=== PATIENT | female | born 1995 | race Caucasian/White ===

== ENCOUNTER 2023-05-25 13:16 | Outpatient (AMB) | payer OTHER, SELFPAY ==
--- NOTE | 2023-05-25 13:20 | A.OFFVIS_ITS ---
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 History of SAB with a D&C on 04/13/2023. She reports the bleeding had stopped and she since has had a menstrual cycle. She denies any pelvic pain or other concerns. She is uncertain if she wants a future , but at this point she also is undecided on control. She reports her Pap smear is up-to-date. Last delivery was a home unattended due to the salon receptionist not making it there on time. She is interested in staying within the midwifery model of care. [facility] Surgical History Hx of dilation and curettage Family History Father Asthma Maternal Grandmother Breast cancer Social History Household Members: Spouse and Children Housing: Apartment Alcohol intake: never Patient Tobacco Use Status: Never used Tobacco Current occupational status: unemployed Sexual orientation: Straight/Heterosexual Gender identity: Female Female Reproductive History Menstrual Age of Menarche: 12 Duration of menses: 3-5 days Date of last menstrual period: 05/06/23 Total pregnancies: 4 Full term: 2 Number of Living Children: 2 Ab spontaneous: 2 Review of Systems Const All systems reviewed & are unremarkable except as noted in HPI and below Endo Reports no additional complaints Physical Exam Vital Signs: Last Vital Signs BP 114/68 05/25/23 13:21 BMI result Body Mass Index 20.5 Const General: cooperative, healthy appearing and no acute distress Psych Appearance: well kempt Attitude: cooperative Thought process: Normal thought process present Results AMB Test Urine AMB Test Urine Negative Last Edit by Judith Jacob CMA on 13:42 Results Reviewed Results Reviewed: Laboratory Last Values [facility] Negative 05/25/23 13:41 Assessment & Plan Assessment & Plan (1) History of 2 spontaneous abortions: Code(s): Z87.59 - Personal history of other complications of , childbirth and the puerperium (2) Encounter to establish care: Code(s): Z76.89 - Persons encountering health services in other specified circumstances Plan Discussed: Continue to eat a healthy diet and lifestyle. Start vitamins for the benefit of folic acid. If decided to start control call for a consult follow-up appointment. Monitor menses if any late menses an unprotected intimacy to do a home test and call for care. Discuss options for care within the area to include all other facilities, [facility], [facility], [address] [place] [address]. Follow-up in January for her annual exam. All of her questions and concerns were addressed to the best of my ability and shared decision making. She is agreeable to the plan of care. This note is constructed using voice recognition software. While every effort has been made to ensure accuracy, pharmacy customer care specialist errors may have been included. Orders: Orders AMB HCG Urine Test Today Z32.02 - Encounter for test, result negative Coding Level of Care Code New Pt Level 3 (58171) Diagnoses History of 2 spontaneous abortions Z87.59 Encounter to establish care Z76.89
[2023-05-25 13:21] VITALS: BP 114/68; BMI 20.5
== END 2023-05-25 13:56 | disposition home or self-care (01) ==
LOC: HO.HWS 13:16
PROVIDERS: PCP Internal Medicine; Visit Provider Advanced Practice Midwife
DX: Z87.59 Personal history of other complications of pregnancy, childbirth and the puerperium (principal); Z76.89 Persons encountering health services in other specified circumstances; Z32.02 Encounter for pregnancy test, result negative
CPT/HCPCS: 99203

== ENCOUNTER → 2023-05-25 13:16 | Outpatient (BNVA) | payer OTHER, SELFPAY | PROVIDERS: PCP Internal Medicine; Visit Provider Advanced Practice Midwife | DX: Z76.89 Persons encountering health services in other specified circumstances (principal); Z87.59 Personal history of other complications of pregnancy, childbirth and the puerperium | CPT/HCPCS: 81025; 99202 ==

== ENCOUNTER 2023-07-18 09:08 | Outpatient (AMB) | payer OTHER, SELFPAY ==
[2023-07-18 09:10] VITALS: BP 106/60; BMI 19.8
--- NOTE | 2023-07-18 09:10 | A.OFFVIS_ITS ---
Intake Vital Signs 07/18/23 09:10 Height 5 ft 2 in Weight 108 lb BMI 19.8 BP 106/60 Intake Visit Reasons: pain during intercourse Intake Note: Pain with intercourse and lower back pain when on period Car Jockey Required: No Information Interpreted: non-clinical & clinical Pipe And Tank Fabricator: Pipe And Tank Fabricator Present (Ana) Allergies No Known Allergies [No Known Allergies*] Allergy (Verified 07/18/23 09:14) Medication List - Last Reconciled 07/18/23 by Breana Camarena CNM No Known Home Meds Is last menstrual period known: Yes Last menstrual period: 07/01/23 Post menopausal: No HPI pain during intercourse HPI Details Patient is here for problem visit because she has been having pain with intercourse for the last 2 weeks she says she has not actually having pain with her. Other than regular cramping. She was in [place] for at least a year and she just came back this April. She had 1 baby here fiber 6 years ago and then her 2nd baby she had in [place] she was planning a home but the machining department supervisor did not make it in time and her delivered the baby. At the very end of the visit she shared that she had had a D&C just this past March she said it was vulva very confusing because she said the baby stopped growing and did not develop but the placenta kept growing and she had to have the D and C she said they were worried about an ectopic as well but it was not that she does not remember anybody seeing the term molar but she is going to research further on her phone. During the visit I request she did find a Pap smear that was done 11/11/2021 and it was negative no HPV testing done as not indicated. She reports that maybe about a year ago but she has not exactly sure when she had a pain similar to this with intercourse and she was seen for visit and she did find this in her phone where she was diagnosed with pelvic inflammatory disease and she was treated with 2 kinds of antibiotics for 2 weeks and shots. She uses condoms most of the time though admits that she did not use condoms last week. [facility] Surgical History Hx of dilation and curettage Family History Father Asthma Maternal Grandmother Breast cancer Social History Household Members: Spouse and Children Housing: Apartment Alcohol intake: never Patient Tobacco Use Status: Never used Tobacco Current occupational status: unemployed Sexual orientation: Straight/Heterosexual Gender identity: Female Female Reproductive History Menstrual Age of Menarche: 12 Date of last menstrual period: 07/01/23 control method: none Total pregnancies: 4 Full term: 2 Number of Living Children: 2 Ab spontaneous: 2 Date of last pap smear: 11/11/21 (Negative (Per [place] patient portal) ) History of abnormal pap smear: No Physical Exam Vital Signs: Last Vital Signs BP 106/60 07/18/23 09:10 BMI result Body Mass Index 19.8 Other: Bimanual exam no profound cervical motion tenderness, except moving slightly to patient's right and there was uterine tenderness with exam patient not especially tender at her bladder but tender at both adnexa. Her discharge appeared grossly within normal limits uterus is small and anteverted. External Female Exam: normal external appearance and normal appearance of the urethra Speculum Exam - Vagina: normal appearance of the vagina and normal vaginal discharge Speculum Exam - Cervix: normal appearance of the cervix and Cervical os closed Results AMB Test Urine AMB Test Urine Negative Last Edit by LUIS MIGUEL Messer on 07/18/23 10:31 Assessment & Plan Assessment & Plan (1) Dyspareunia, female: Code(s): N94.10 - Unspecified dyspareunia (2) Pelvic inflammatory disease (PID): Comment: Patient is mildly to moderately tender on exam has been treated 1 other time for this about a year ago we will re-treat at this time, teaching and precautions. Code(s): N73.9 - Female pelvic inflammatory disease, unspecified Plan Discussed in detail issues around PID and that it has a diagnosis that is made based off of physical findings and that usually the cultures will end up being negative however it is the safer thing to do to treat her as if it is PID in this case. Additionally there was lengthy discussion during this visit to try and elicit history more clearly as to whether not the D&C for the miscarriage that she had described did not appear to be a molar after all at least that was not found in her D&C notes. Discussed that if that were the case avoidance of in the near term would of been very important as well as continuing to follow hCGs. I recommend no sex until we evaluate her after treatment to make sure she is feeling better and after treatment I am recommending a pelvic ultrasound. I have ordered it for about 4 weeks from now we will see her in about 2 weeks to see if she is better I am prescribing 2 weeks of antibiotics per CDC guidelines as well as the IM ceftriaxone for which she will go to the hospital and get the injection with the nurses today. I also recommend condoms when she does have sex. By the report in her phone she has not due for a Pap smear at this time. Orders: Orders CT NG by PCR Today N94.10 - Unspecified dyspareunia AMB Ceftriaxone Injection Today N73.9 - Female pelvic inflammatory disease, unspecified, N94.10 - Unspecified dyspareunia AMB HCG Urine Test Today Z32.02 - Encounter for test, result negative Bacterial Vaginosis Panel Today N94.10 - Unspecified dyspareunia US pelvic and transvaginal 1 Month N73.9 - Female pelvic inflammatory disease, unspecified, N94.10 - Unspecified dyspareunia Medications: New doxycycline hyclate 100 mg PO BID 28 tabs 0RF metronidazole 500 mg PO Q12H 28 tabs 0RF ceftriaxone 500 mg IM ONCE 1 ea 0RF N73.9 - Female pelvic inflammatory disease, unspecified, N94.10 - Unspecified dyspareunia Coding Level of Care Code New Pt Level 4 (55908) Diagnoses Dyspareunia, female N94.10 Pelvic inflammatory disease (PID) N73.9
== END 2023-07-18 10:32 | disposition home or self-care (01) ==
PROVIDERS: PCP Internal Medicine; Visit Provider Advanced Practice Midwife
DX: N94.10 Unspecified dyspareunia (principal); N73.9 Female pelvic inflammatory disease, unspecified
CPT/HCPCS: 99204

== ENCOUNTER 2023-07-18 09:08 | Outpatient (REF) | payer OTHER, SELFPAY ==
[2023-07-19 09:46] LABS: CT PCR NOT DETECTED (Not Detect.); NG PCR NOT DETECTED (Not Detect.)
[2023-07-19 11:32] LABS: BV Int Neg Control Negative (Negative); BV Int Pos Control Positive (Positive)
== END 2023-07-18 09:09 | disposition home or self-care (01) ==
LOC: HO.LNP 09:08
PROVIDERS: PCP Internal Medicine; Visit Provider Advanced Practice Midwife
DX: N94.10 Unspecified dyspareunia (principal); N73.9 Female pelvic inflammatory disease, unspecified
CPT/HCPCS: 0353U; 87480; 87510; 87660; 96372; 99202; J0696

== ENCOUNTER 2023-07-18 10:44 | Outpatient (AMB) | payer OTHER, SELFPAY ==
--- NOTE | 2023-07-18 10:57 | AM.OFFVISNUR ---
Intake Intake Visit Reasons: Injection Allergies No Known Allergies [No Known Allergies*] Allergy (Verified 07/18/23 09:14) Office Meds ceftriaxone 500 mg solution for injection Performing Provider: Breana Camarena CNM Performing Location: [facility] Administered by: Suzan Gray LPN on 07/18/23 11:42 Dose Route Admin Location Dispensed Lot Number Expiration Date [facility] Rn Cvicu 500 mg IM left gluteus 500 mg [id number] 04/21/25 0252-0520-01 [facility] Results AMB Test Urine AMB Test Urine Negative Last Edit by LUIS MIGUEL Messer on 07/18/23 10:31 Coding Assessment & Plan Assessment & Plan Orders: Orders AMB Ceftriaxone Injection Today N73.9 - Female pelvic inflammatory disease, unspecified
== END 2023-07-18 11:24 | disposition left against medical advice (07) ==
LOC: HO.HWS 10:45
PROVIDERS: PCP Internal Medicine; Visit Provider Advanced Practice Midwife
DX: N73.9 Female pelvic inflammatory disease, unspecified (principal)